=== PATIENT | male | born 2000 | race Two or more races ===

== ENCOUNTER 2025-01-19 04:52 | Emergency (ER) | payer OTHER ==
[~2025-01-19] VITALS: Ht 175.3 cm; Wt 72.1 kg
[2025-01-19 05:26] VITALS: BP 107/72; O2SAT 98
[2025-01-19] MEDS ORDERED: METOCLOPRAMIDE HCL 5 MG/ML VIAL IM STA (07:50)
[2025-01-19] MEDS ORDERED: 0.9 % SODIUM CHLORIDE 500 ML IV STA (07:51)
[2025-01-19] MEDS ORDERED: DIPHENOXYLATE HCL/ATROPINE 1 UDTAB TABLET PO STA (07:51)
[2025-01-19] MEDS ORDERED: HYOSCYAMINE SULFATE 0.125 MG TAB.SUBL SL ONE (08:00)
[2025-01-19] MEDS ORDERED: METOCLOPRAMIDE HCL 5 MG/ML VIAL ONE (08:26)
[2025-01-19] MEDS ORDERED: HYOSCYAMINE SULFATE 0.125 MG TAB.SUBL ONE (08:26)
[2025-01-19 09:05] LABS: BASO % 0.2 % (0.1-1.2); EOS # 0.01 (0.04-0.54); EOS % 0.1 % (0.7-7.0); LYMPH # 0.85 (1.18-3.74); LYMPH % 8.6 % (19.3-53.1); MEAN PLATELET VOLUME 10.50 fl (9.4-12.4); MONO # 0.80 (0.24-0.82); MONO % 8.1 % (4.7-12.5); NEUT # 8.15 (1.56-6.13); NEUT % 82.8 % (34.0-71.1); RED CELL DISTRIBUTION WIDTH 12.9 % (11.6-14.4)
[2025-01-19 09:29] LABS: BUN CREA RATIO 15.0 (7.0-25.0); CREATININE SERUM 0.94 mg/dL (0.70-1.30); GFR 100.35; GLUCOSE FASTING 96.0 mg/dL (65-100); OSMOLALITY SERUM 278.0 MOSM/KG (275-295)
== END 2025-01-19 13:44 | disposition home or self-care (01) ==
LOC: ER 04:52
DX: K52.9 Noninfective gastroenteritis and colitis, unspecified (principal); Z88.6 Allergy status to analgesic agent